=== PATIENT | female | born 1960 | race African-American/Black ===

== ENCOUNTER → 2017-08-23 07:06 | Outpatient (CLI) | payer OTHER | END | disposition home or self-care (01) | LOC: D.MRI 07:06 | DX: M54.5 Low back pain (principal) ==

== ENCOUNTER 2018-03-22 07:16 | Day surgery (SDC) | payer OTHER ==
[~2018-03-22] VITALS: Ht 172.7 cm; Wt 105.7 kg
--- NOTE | ~2018-03-22 | OP ---
PATIENT NAME: SHANE LUCIANO MEDICAL RECORD: [id number] :64 LOCATION:[facility]OPS ADMISSION DATE: SURGEON: LYLA JAMA MD DATE OF OPERATION: 03/22/2018 PREOPERATIVE DIAGNOSES: 1. Left lateral shoulder lipoma (4 cm). 2. Hypertension. 3. Gout. POSTOPERATIVE DIAGNOSES: 1. Left lateral shoulder lipoma (4 cm). 2. Hypertension. 3. Gout. PROCEDURE: Excision of 4-cm left lateral shoulder lipoma. SURGEON: Lyla Jama MD REPORT OF PROCEDURE: The patient's left shoulder and upper extremity were prepped and draped in sterile fashion. A longitudinal incision was made overlying the mass. Electrocautery was used to dissect through the subcutaneous tissues. I bluntly came around the fatty mass. Once we got on the inferior aspect of it, we used electrocautery to free up any adhesions that were present. The mass itself had a lot of tissue present within it and it dipped down towards the muscle fibers, but did not penetrate through the fascia. It stayed in the subcutaneous space. The total size of the tissue was about 4 cm in greatest diameter. Once this mass was completely excised, it was sent off for permanent specimen. We irrigated out the wound with normal saline and then treated the surrounding area with electrocautery. At this point, the subcutaneous tissues were infused with 10 mL of 0.25% Marcaine with epinephrine and then reapproximated with interrupted 3-0 Vicryl. The skin was closed with running subcutaneous 5-0 Monocryl and dressed appropriately. COMPLICATIONS: None. CONDITION: Stable. ANESTHESIA: General endotracheal and local. BLOOD LOSS: Minimal. TRANSINT:[id number] Voice Confirmation ID: [id number] DOCUMENT ID: [id number] LYLA JAMA MD at 1219 CC: IKE MARTINEZ [id number] DICTATION DATE: 03/22/18 1151 [employer]ER: 03/22/18 1204 [facility] 03/22/[address] [id number]
[~2018-03-22 07:16] MED LIST: NORVASC5 MG PO; OMEPRAZOLE20 M1 PO; STERAPRED DS 1010 MG PO; ZYLOPRIM300 MG PO
[2018-03-22 07:43] LABS: HEMATOCRIT 43.7 % (36.0-48.0); HEMOGLOBIN 14.4 g/dL (12-16); MCH 25.9 pg (26.0-34.0); MCV 78.5 fL (80.0-100.0); MEAN PLATELET VOLUME 10.4 fL (7.4-10.4); RBC 5.57 10x6/uL (4.00-5.40); RDW 17.2 % (11.5-14.5); WBC 14.8 10x3/uL (4.8-10.8)
[2018-03-22 08:58] VITALS: BP 140/88; Ht 172.7 cm; Wt 105.7 kg
[2018-03-22] MEDS ORDERED: NORCO 10-325 TA1 TAB PO (11:47)
== END 2018-03-22 14:40 | disposition home or self-care (01) ==
LOC: D.OPS 07:16
PROVIDERS: Anesthesiology
DX: D17.22 Benign lipomatous neoplasm of skin and subcutaneous tissue of left arm (principal); I10 Essential (primary) hypertension; M10.9 Gout, unspecified; Z01.812 Encounter for preprocedural laboratory examination

== ENCOUNTER 2018-03-25 22:15 | Emergency (ER) | payer OTHER ==
[~2018-03-25] VITALS: Ht 172.7 cm; Wt 102.7 kg
[~2018-03-25 22:15] MED LIST changes: +NORCO 10-325 TA1 TAB PO
[2018-03-25 22:31] VITALS: Ht 172.7 cm; Wt 102.7 kg
[2018-03-26 00:58] VITALS: BP 124/78
== END 2018-03-26 00:58 | disposition home or self-care (01) ==
LOC: D.ER 22:15
DX: L76.22 Postprocedural hemorrhage of skin and subcutaneous tissue following other procedure (principal); I10 Essential (primary) hypertension; K21.9 Gastro-esophageal reflux disease without esophagitis